=== PATIENT | female | born 1955 | race Caucasian/White ===

== ENCOUNTER 2018-01-31 14:28 | Inpatient (IN) | payer MEDICARE, OTHER ==
[~2018-01-31] VITALS: Ht 162.6 cm; Wt 87.5 kg
--- NOTE | 2018-01-31 14:57 | NUR ---
PT BIB PA WITH A C/O RU CHEST VILMA CATH CLOGGED. LAST HD SATURDAY. UNABLE TO GET HD TODAY. PT HAS A J TUBE THAT SHE WOULD LIKE REMOVED. PT AMBULATES, BUT USES A WALKER LATELY. PT IS AA&O X4. PT IS ON THE MONITOR AND CONTINOUS PULSE OX.
--- NOTE | 2018-01-31 15:08 | NUR ---
IV STARTED IN LEFT WRIST. BLOOD DRAW IN PROGRESS BY PHLIBOTOMIST. EKG IN PROGRESS AT THE BEDSIDE.
--- NOTE | 2018-01-31 15:20 | NUR ---
HD NURSE WAS AT THE BEDSIDE EVALUATING THE VILMA CATH.
[2018-01-31 15:23] LABS: BASOPHILS % (AUTO) 0.5 % (0.0-2.0); HEMATOCRIT 29 % (33-45); HEMOGLOBIN 9.8 g/dL (11.5-14.8); LYMPHOCYTES % (AUTO) 21.9 % (20.0-44.0); MEAN CORPUSCULAR HGB CONC 34 g/dl (31.0-36.0); MEAN CORPUSCULAR VOLUME 104 fL (82-100); MONOCYTES # (AUTO) 0.7 /CMM (0.1-1.30); MONOCYTES % (AUTO) 7.3 % (2.0-12.0); NEUTROPHILS # (AUTO) 5.9 /CMM (1.8-8.9); NEUTROPHILS % (AUTO) 64.3 % (43.0-81.0); PLATELET COUNT (AUTO) 465 /CMM (150-450); RED BLOOD CELL COUNT(AUTO) 2.78 MIL/uL (4.0-5.2); WHITE BLOOD COUNT (AUTO) 9.1 K/uL (4.3-11.0)
[2018-01-31 15:30] LABS: CALCIUM, SERUM 7.8 mg/dL (8.5-10.1); CREATININE 5.3 mg/dL (0.6-1.3); POTASSIUM 3.7 mmol/L (3.5-5.1)
--- NOTE | 2018-01-31 15:33 | NUR ---
CALLED NURSING SUP. FOR TELE BED
[2018-01-31 15:34] LABS: INR 1.03 (0.85-1.15)
[2018-01-31] MEDS ORDERED: GUAI5SYR GT (15:45)
[2018-01-31] MEDS ORDERED: CHLO473M3 MM (15:45)
[2018-01-31] MEDS ORDERED: OXYC5TAB3 GT (15:45)
[2018-01-31] MEDS ORDERED: FLUT16SP BNOSTRILS (15:45)
[2018-01-31] MEDS ORDERED: ASPI-1169 GT (15:45)
[2018-01-31] MEDS ORDERED: SENN-18 GT (15:45)
[2018-01-31] MEDS ORDERED: ATOR40TA GT (15:45)
[2018-01-31] MEDS ORDERED: ALBU2.5V38 IH ×2 (15:45)
[2018-01-31] MEDS ORDERED: QUET25TA GT (15:45)
[2018-01-31] MEDS ORDERED: ACET-868 GT ×2 (15:45)
[2018-01-31] MEDS ORDERED: LISI10TA5 GT (15:45)
[2018-01-31] MEDS ORDERED: BUME1TAB5 GT (15:45)
[2018-01-31] MEDS ORDERED: APIX2.5T GT (15:45)
[2018-01-31] MEDS ORDERED: ONDA4TAB5 GT (15:45)
[2018-01-31] MEDS ORDERED: ESCI10TA GT (15:45)
[2018-01-31] MEDS ORDERED: LORA2TAB GT (15:45)
[2018-01-31] MEDS ORDERED: CARV25TA2 GT (15:45)
[2018-01-31] MEDS ORDERED: FOLI0.8T23 GT (15:45)
[2018-01-31] MEDS ORDERED: INSU100V11 SQ (15:45)
[2018-01-31] MEDS ORDERED: HYDR500C2 GT (15:45)
[2018-01-31] MEDS ORDERED: INSU100V7 SQ (15:45)
[2018-01-31] MEDS ORDERED: AMIN30LI4 GT (15:45)
--- NOTE | 2018-01-31 15:48 | NUR ---
CALLED TO GIVE REPORT TO TELE NURSE. NURSE WILL CALL BACK.
--- NOTE | 2018-01-31 16:03 | NUR ---
CALLING REPORT TO KAUR PHILLIP. KENJI IS NOT AVAILABLE AT THIS TIME. WILL CALL BACK SOON.
[2018-01-31 17:00] VITALS: BP 142/64
--- NOTE | 2018-01-31 17:00 | NUR ---
CONSULTING NURSE NOTES ADMITTED PATIENT FOR ER IN STABLE CONDITION. REPORT GIVEN BY PARABernard. NO ACUTE DISTRESS NOTED. HD CATHETER ON RCW IN INTACT SECURE WITH DRESSING, NO BLEEDING, NO REDNESS OR SWELLING NOTED. GTUBE INTACT , NO REDNESS, NO SWELLING NOTED. ORIENTED TO THE ROOM. SAFETY MEASURE IN PLACE. CALL LIGHT WITHIN REACH. WILL CONTINUE TO MONITOR ACCORDINGLY.
--- NOTE | 2018-01-31 18:49 | NUR ---
PAPER AND PULP MILL OPERATOR NOTES PATIENT IN BED ALERT ORIENTED X4. NO ACUTE DISTRESS NOTED. HD CATHETER ON RCW IN INTACT SECURE WITH DRESSING, NO BLEEDING, NO REDNESS OR SWELLING NOTED. GTUBE INTACT , NO REDNESS, NO SWELLING NOTED. NEEDS ATTENDED AND ANTICIPATED. SAFETY MEASURE IN PLACE. CALL LIGHT WITHIN REACH. WILL CONTINUE TO MONITOR ACCORDINGLY. WILL ENDORSE TO NIGHT NURSE FOR CONTINUITY OF CARE.
--- NOTE | 2018-01-31 19:40 | NUR ---
BANNER PAINTER OPENING NOTES RECEIVED PATIENT IN BED ALERT ORIENTED X 4. NO ACUTE DISTRESS NOTED. NO C/O PAIN, NO SOB NOTED. HD CATHETER ON RCW, INTACT SECURED WITH CLEAN DRESSING, NO S/S OF INFECTION NOTED. IV ACCESS TO LEFT WRIST, INTACT PATENT, SL. G TUBE INTACT, PER PT GT NEVER USED FOR FEEDING OR MEDS, ALSO CONFIRMED WITH [facility] STAFF WELL. PER SNF NURSE, PT HAD BEEN TOLERATING REGULAR DIET VERY WELL. PT REFUSED TO HAVE MILIEU TECHNICIAN ON DESPITE OF EXPLAINING RISKS & BENEFITS, SAYING, " I DON'T NEED IT, I AM FINE." SAFETY MEASURE IN PLACE. BED IN LOW LOCKED POSITION. CALL LIGHT WITHIN REACH. WILL CONTINUE TO MONITOR ACCORDINGLY.
--- NOTE | 2018-01-31 19:45 | NUR ---
DR JONES CALLED MD CALLED TO CONFIRM THAT PT WILL HAVE PERMA CATH INSERTED IN AM, TIME NOT SPECIFIED YET WITH OTHER NEW ORDERS. NOTED & CARRIED OUT. WILL F/U ABOUT THE PROCEDURE TIME.
--- NOTE | 2018-01-31 19:55 | NUR ---
LIVE IN HOUSEKEEPER NOTE PER PM SHIFT NURSE PT HAS BEEN ADMITTED TO THE FLOOR SINCE 0, DR MCKEON IS AWARE & WAITING FOR MD TO PLACE ADMITTING ORDERS FOR THIS PT.
[2018-01-31 20:00] VITALS: BP 146/71
--- NOTE | 2018-01-31 21:50 | NUR ---
DR. EDGAR HUGHES CALLED FOLLOWED WITH NEPHROLOGY DEPT TO RECEIVE ADMITTING ORDERS FOR THE PT, DR EDGAR HUGHES CALLED BACK & ORDERED TO RESUME ALL PREVIOUS MEDS, DC DIABETIC MEDS & PREVIOUS SLIDING SCALE, ADD MILD SLIDING SCALE, NPO AFTER MIDNIGHT, PT IS SCHEDULED FOR PERMA CATH INSERTION IN AM, PER DR. JONES. CONSENTS OBTAINED. START IFV @ MIDNIGHT WHEN PT IS NPO, CBC, BMP IN AM. ALL ORDERS NOTED & CARRIED OUT. WILL CONTINUE TO MONITOR THE PT CLOSELY FOR ANY OLIVIER.
[2018-01-31] MEDS ORDERED: ACETAMINOPHEN 325 MG TABLET PO PRN (22:30)
[2018-01-31] MEDS ORDERED: ALBUTEROL FS 2.5 MG/3 ML VIAL.NEB NEB PRN (22:30)
[2018-01-31] MEDS: ALBUTEROL FS 2.5 MG/3 ML VIAL.NEB NEB SCH (22:30)
[2018-01-31] MEDS ORDERED: DEXTROSE 50%-WATER 50 ML DISP.SYRIN IV PRN (22:30)
[2018-01-31] MEDS: BLOOD SUGAR DIAGNOSTIC 1 EACH STRIP IN SCH (22:37)
[2018-01-31] MEDS ORDERED: GUAIFENESIN/D-METHORPHAN HB 5 ML UDC PO PRN (23:00)
[2018-01-31] MEDS ORDERED: oxyCODONE HCL SR 10MG TAB.SR.12H PO SCH (23:00)
--- NOTE | 2018-01-31 23:11 | NUR ---
RN OPERATING ROOM NOTE PT'S BS LEVEL NOTED TO BE 95 MG/DL, GAVE SNACK TO THE PT TO PREVENT HYPOGLYCEMIA, PT HAD 100 % OF SNACK & FELL BACK ASLEEP. BUT STILL REFUSED TO HAVE THE POTATO CHIP PROCESSING SUPERVISOR ON WHEN EXPLAINED.
[2018-02-01] VITALS: BP 140/82
[2018-02-01] MEDS ORDERED: IV D5/ 0.9% NACL 1,000 ML IV PRN
--- NOTE | 2018-02-01 00:55 | NUR ---
NEW IV LINE INSERTED PT WAS STARTED ON IVF, NOTED WITH IV SITE LEAKAGE, REMOVED IV ACCESS TO LEFT WRIST, PRESSURE DRESSING APPLIED. NEW IV CATH INSERTED TO LEFT FOREARM WITH GOOD BLOOD RETURN, NO S/S OF INFECTION NOTED. PROCEDURE TOLERATED WELL BY THE PT. IVF RUNNING ORDERED BY . PT IS NPO SINCE MIDNIGHT. WII OBSERVE CLOSELY.
[2018-02-01] MEDS: ALBUTEROL FS 2.5 MG/3 ML VIAL.NEB NEB SCH ×4 (01:30→19:08)
[2018-02-01 04:00] VITALS: BP 139/75
[2018-02-01 06:45] LABS: BASOPHILS % (AUTO) 0.2 % (0.0-2.0); EOSINOPHILS % (AUTO) 5.9 % (0.0-6.0); HEMATOCRIT 28 % (33-45); HEMOGLOBIN 9.1 g/dL (11.5-14.8); LYMPHOCYTES # (AUTO) 1.8 /CMM (0.8-4.8); LYMPHOCYTES % (AUTO) 20.7 % (20.0-44.0); MEAN CORPUSCULAR HGB CONC 33 g/dl (31.0-36.0); MEAN CORPUSCULAR VOLUME 105 fL (82-100); MONOCYTES # (AUTO) 0.8 /CMM (0.1-1.30); MONOCYTES % (AUTO) 9.3 % (2.0-12.0); NEUTROPHILS # (AUTO) 5.7 /CMM (1.8-8.9); NEUTROPHILS % (AUTO) 63.9 % (43.0-81.0); PLATELET COUNT (AUTO) 455 /CMM (150-450); RDW COEFFICIENT OF VARIATION 28.6 (11.5-15.0); RED BLOOD CELL COUNT(AUTO) 2.62 MIL/uL (4.0-5.2); WHITE BLOOD COUNT (AUTO) 8.9 K/uL (4.3-11.0)
[2018-02-01] MEDS: BLOOD SUGAR DIAGNOSTIC 1 EACH STRIP IN SCH ×4 (06:52→21:52)
[2018-02-01] MEDS ORDERED: LIDOCAINE 1% INJ 50 ML MDV IJ ONE (07:02)
[2018-02-01] MEDS ORDERED: IOHEXOL 50 ML IV ONE (07:02)
[2018-02-01] MEDS ORDERED: HEPARIN SODIUM, PORCINE 1,000 UNIT/ML VIAL ONE (07:02)
[2018-02-01 07:03] LABS: CALCIUM, SERUM 8.1 mg/dL (8.5-10.1); CREATININE 5.3 mg/dL (0.6-1.3); POTASSIUM 3.7 mmol/L (3.5-5.1)
[2018-02-01] MEDS ORDERED: ANESTHESIA TRAY IN PYXIS 1 EA TRAY MC ONE (07:03)
--- NOTE | 2018-02-01 07:10 | NUR ---
DEFENCE FORCE MEMBER OTHER RANKS CLOSING NOTES PT SLEPT WELL @ NIGHT. A & O X 4. NO ACUTE DISTRESS NOTED. NO C/O PAIN, NO SOB NOTED. HD CATHETER ON RCW, INTACT SECURED WITH CLEAN DRESSING, NO S/S OF INFECTION NOTED. IV ACCESS TO LFA, INTACT PATENT, RUNNING WITH IVF ORDERED. G TUBE INTACT, DRESSING CHANGED. PT IS NPO AFTER MIDNIGHT FOR SCHEDULED PERMA CATH INSERTION, PER DR JONES @ 0730. PT CONTINUED REFUSING TO HAVE SENIOR ENVIRONMENTAL CONSULTANT ON DESPITE OF EXPLAINING RISKS & BENEFITS, SAYING, " I DON'T NEED IT, I AM FINE & I DON'T WANT ALL THAT STUFF ALL OVER ME." SAFETY MEASURE IN PLACE. BED IN LOW LOCKED POSITION. CALL LIGHT WITHIN REACH. ENDORSED TO AM RN FOR CONTINUITY OF CARE.
--- NOTE | 2018-02-01 07:15 | NUR ---
RN OPENING NOTES PT. IS A&OX4. PT. BREATHING ON ROOM AIR UNLABORED. PT. LEFT ROOM TO GO TO OR FOR A PROCEDURE TO REPLACE PERMACATHETER. CHECKLIST WAS COMPLETED, AND CONSENT WAS SIGNED.
[2018-02-01 08:00] VITALS: BP 139/71
--- NOTE | 2018-02-01 08:36 | NUR ---
PT. RETURNED BACK TO ROOM 316 BED 2 FROM SURGERY. PT. IS IN STABLE CONDITION, A&OX3.
[2018-02-01] MEDS: APIXABAN 2.5 MG TABLET PO SCH ×2 (09:00→17:11)
[2018-02-01] MEDS: QUETIAPINE FUMARATE 25 MG TABLET PO SCH ×2 (09:00→19:03)
--- NOTE | 2018-02-01 09:40 | NUR ---
DISCONTINUE TELEMETRY MONITORING PER DR. PITTMAN. CHARGE NURSE AWARE.
[2018-02-01] MEDS ORDERED: HYDROCODONE/APAP 5/325MG 1 EACH TABLET PO PRN (10:00)
[2018-02-01] MEDS: FLUTICASONE PROPIONATE 16 GM BOTTLE NS SCH (10:22)
[2018-02-01] MEDS: PROSOURCE / PROSTAT (PYXIS) 30 ML UDC PO SCH ×2 (12:53→17:11)
--- NOTE | 2018-02-01 13:02 | NUR ---
HEMODIALYSIS 02/01/18 P1 LITER WAS REMOVED, BP 149/85, PULSE 80 PULSE.
[2018-02-01] MEDS: VIT B CMPLX 3/FA/VIT C/BIOTIN 1 TAB TABLET PO SCH (13:04)
[2018-02-01] MEDS: ASPIRIN EC 81 MG TABLET.DR PO SCH (13:04)
[2018-02-01] MEDS: SENNOSIDES 8.6 MG TABLET PO SCH ×2 (13:04→17:12)
[2018-02-01] MEDS: HYDROXYUREA 500 MG CAPSULE PO SCH ×2 (13:07→19:02)
[2018-02-01] MEDS: LISINOPRIL (10MG) 10 MG TABLET PO SCH (13:07)
[2018-02-01] MEDS: CARVEDILOL 12.5 MG TABLET PO SCH ×2 (13:08→21:52)
[2018-02-01] MEDS: BUMETANIDE (1 MG) 1 MG TABLET PO SCH ×2 (13:08→19:02)
[2018-02-01 14:12] LABS: IRON, SERUM 51 ug/dl (50-175); TOTAL IRON BINDING CAPACITY 165 ug/dl (250-450)
--- NOTE | 2018-02-01 14:45 | NUR ---
RN NOTES PT. HAS AN UNSTEADY GAIT, AND AMBULATED WITH A WALKER WITH STAND BY ASSIST IN THE HALLWAY FOR 5 MINUTES.
[2018-02-01] MEDS: PANTOPRAZOLE 40 MG VIAL IV SCH (14:49)
[2018-02-01 16:00] VITALS: BP 129/78
--- NOTE | 2018-02-01 16:36 | NUR ---
RN NOTES PT. REFUSED TO WEAR DVT PUMPS. PT. WAS EXPLAINED THE BENEFITS, AND DID NOT WANT TO WEAR THEM.
--- NOTE | 2018-02-01 19:25 | NUR ---
MS RN OPENING NOTES RECEIVED PT SITTING UPRIGHT IN BED. AWAKE AND RESPONSIVE. AFEBRILE, RESPIRATIONS ARE EVEN AND UNLABORED. NOT IN ANY ACUTE DISTRESS NOTED. PT DENIES ANY PAIN OR DISCOMFORT, N/V, SOB. IV SITE INTACT, NO INFILTRATION NOTED. DRESSING KEPT CLEAN AND DRY. HD TO RCW, NO S/SX OF INFECTION NOTED. SAFETY MEASURES ARE IN PLACE. CALL LIGHT IS LEFT WITHIN REACH. WILL CONTINUE TO MONITOR THROUGHOUT SHIFT FOR CONTINUITY OF CARE.
--- NOTE | 2018-02-01 19:38 | NUR ---
RN CLOSING NOTES PT. IN BED A&OX4. BREATHING IS UNLABORED, AND EVEN ON ROOM AIR. NO S/S OF ACUTE DISTRESS. IV ACCES ON RIGHT FOREARM IS INTACT. PT. RECEIVED HEMODIALYSIS TODAY, AND HAD A NEW PERMA CATHETER FOR HD REPLACED IN THE MORNING. WALKER IS AT BEDSIDE. BED IS IN LOWEST, AND LOCKED POSITION. 2 SIDE RAILS UP, AND CALL LIGHT WITHIN REACH. WILL ENDORSE REPORT TO NURSE.
[2018-02-01 20:00] VITALS: BP 149/81
[2018-02-01] MEDS: ATORVASTATIN 40 MG TABLET PO SCH (21:51)
[2018-02-01] MEDS: ESCITALOPRAM OXALATE (10 MG) 10 MG TABLET PO SCH (21:51)
[2018-02-02] MEDS: LORAZEPAM 1 MG TABLET PO PRN ×2 (00:35→23:25)
[2018-02-02] MEDS: ALBUTEROL FS 2.5 MG/3 ML VIAL.NEB NEB SCH ×4 (01:30→19:30)
--- NOTE | 2018-02-02 06:37 | NUR ---
MS RN CLOSING NOTES ALL DUE MEDS GIVEN, NEEDS MET AND RENDERED. AWAKE AND RESPONSIVE. AFEBRILE, RESPIRATIONS ARE EVEN AND UNLABORED, NOT IN ANY ACUTE DISTRESS NOTED. DENIES ANY SOB, CHEST PAIN, N/V. IV SITE INTACT, DRESSING KEPT CLEAN AND DRY. SAFETY MEASURES ARE IN PLACE. WILL ENDORSE TO NEXT SHIFT FOR CONTINUITY OF CARE.
[2018-02-02] MEDS: BLOOD SUGAR DIAGNOSTIC 1 EACH STRIP IN SCH ×4 (06:50→21:51)
--- NOTE | 2018-02-02 07:29 | NUR ---
RN OPENING NOTES RECEIVED PT. IN BED SLEEPING. BREATHING IS UNLABORED, AND EVEN ON ROOM AIR. NO S/S OF ACUTE DISTRESS. IV ACCES ON RIGHT FOREARM IS INTACT. WALKER IS AT BEDSIDE. BED IS IN LOWEST, AND LOCKED POSITION. 2 SIDE RAILS UP, AND CALL LIGHT WITHIN REACH. WILL CONTINUE TO ASSESS AND MONITOR.
[2018-02-02 08:00] VITALS: BP 125/69
--- NOTE | 2018-02-02 08:43 | NUR ---
RN NOTES PT. REFUSED PHYSICAL THERAPY THIS MORNING.
[2018-02-02] MEDS: FLUTICASONE PROPIONATE 16 GM BOTTLE NS SCH (08:54)
[2018-02-02] MEDS: VIT B CMPLX 3/FA/VIT C/BIOTIN 1 TAB TABLET PO SCH (08:55)
[2018-02-02] MEDS: HYDROXYUREA 500 MG CAPSULE PO SCH ×2 (08:55→17:02)
[2018-02-02] MEDS: BUMETANIDE (1 MG) 1 MG TABLET PO SCH ×2 (08:55→17:02)
[2018-02-02] MEDS: QUETIAPINE FUMARATE 25 MG TABLET PO SCH ×2 (08:55→17:02)
[2018-02-02] MEDS: SENNOSIDES 8.6 MG TABLET PO SCH ×2 (08:55→17:02)
[2018-02-02] MEDS: ASPIRIN EC 81 MG TABLET.DR PO SCH (08:55)
[2018-02-02] MEDS: CARVEDILOL 12.5 MG TABLET PO SCH ×2 (08:57→21:18)
[2018-02-02] MEDS: LISINOPRIL (10MG) 10 MG TABLET PO SCH (08:57)
[2018-02-02] MEDS: APIXABAN 2.5 MG TABLET PO SCH ×2 (08:59→17:00)
[2018-02-02] MEDS: PROSOURCE / PROSTAT (PYXIS) 30 ML UDC PO SCH ×2 (08:59→17:02)
--- NOTE | 2018-02-02 12:00 | NUR ---
HD PERMA CATHETER DRESSING WAS CHANGED BY DIALYSIS NURSE WITHOUT COMPLICATIONS.
[2018-02-02] MEDS: INSULIN REGULAR, HUMAN 100 UNIT/ML 3 ML VIAL SQ PRN ×2 (12:12→21:54)
--- NOTE | 2018-02-02 13:46 | NUR ---
CONSENTS SIGNED FOR G-TUBE REMOVAL, AND EGD FOR Saturday02/03/18. PER PRINCIPAL PLANNER ORDER, HOLD IRON VILLAFUERTE PT. WILL BE NPO AFTER MIDNIGHT.
[2018-02-02] MEDS: PANTOPRAZOLE 40 MG VIAL IV SCH (14:10)
[2018-02-02 16:00] VITALS: BP 121/70
--- NOTE | 2018-02-02 18:53 | NUR ---
RN CLOSING NOTES PT. IS IN BED A&OX4. NO SOB, BREATHING IS UNLABORED, AND EVEN ON ROOM AIR. NO S/S OF ACUTE DISTRESS. IV ACCES ON LEFT FOREARM IS INTACT AND PATENT. WALKER IS AT BEDSIDE. BED IS IN LOWEST, AND LOCKED POSITION. 2 SIDE RAILS UP, AND INSTRUCTED PT. TO USE CALL LIGHT FOR ASSISTANCE. WILL ENDORSE REPORT TO NURSE.
--- NOTE | 2018-02-02 19:30 | NUR ---
MS RN OPENING NOTES: PATIENT IN BED, AOX4, ON ROOM AIR, BREATHING EVEN AND UNLABORED. BREATH SOUNDS CLEAR TO AUSCULTATION. APPEARS CALM AND IN NO DISTRESS, DENIES PAIN OR DIFFICULTY BREATHING. PIV OVER LFA G 22 INTACT AND PATENT TO FLUSH. PATIENT HAS GTUBE IN PLACE, CLAMPED. PER PATIENT, SHE HAS NOT BEEN USING IT FOR WEEKS. PATIENT WILL BE HAVING GTUBE REMOVAL TOMORROW WITH GI, DR LONDONO, PATIENT IS AWARE, CONSENTED. PATIENT WILL ALSO HAVE EGD FOR TOMORROW, ADVISED PATIENT THAT SHE WILL BE NPO POST MIDNIGHT. PATIENT HAS SOME QUESTIONS RE ANESTHESIA, STATES THAT SHE WANTS TO BE "KNOCKED OUT" DURING THE PROCEDURE OR ELSE SHE WILL NOT CONSENT. WILL INFORM GI TONIGHT. PROVIDED FOR COMFORT AND SAFETY. BED IN LOWEST AND LOCKED POSITION, SIDERAILS UP X 3, CALL LIGHT WITHIN REACH. WILL CONT TO MONITOR.
[2018-02-02 19:51] VITALS: BP 149/71
[2018-02-02 20:00] VITALS: BP 149/71
[2018-02-02] MEDS: ATORVASTATIN 40 MG TABLET PO SCH (21:18)
[2018-02-02] MEDS: ESCITALOPRAM OXALATE (10 MG) 10 MG TABLET PO SCH (21:18)
--- NOTE | 2018-02-02 21:56 | NUR ---
RN NOTES: BLOOD SUGAR CHECKED AT 141 MG/DL, THEN PATIENT REQUESTED FOR HER BLOOD SUGAR TO ALSO BE CHECKED OVER HER R FINGER, CHECKED AT 147 MG/DL. ADMINISTERED 2 UNITS REGULAR INSULIN PER SCALE. GAVE LIGHT SNACK. WILL CONT TO MONITOR.
[2018-02-02 23:30] VITALS: BP 113/60
[2018-02-03] MEDS ORDERED: IV D5/0.45 NACL 1,000 ML IV PRN
[2018-02-03] MEDS: ALBUTEROL FS 2.5 MG/3 ML VIAL.NEB NEB SCH ×4 (01:30→19:30)
--- NOTE | 2018-02-03 04:49 | NUR ---
RN NOTES: MORNING CARE RENDERED. HOWEVER, PATIENT REFUSED TO HAVE DRESSING OVER GTUBE REMOVED AND REPLACED.
[2018-02-03] MEDS ORDERED: Z GUARD REMEDY 2 OZ OINT TP PRN (05:00)
[2018-02-03] MEDS: BLOOD SUGAR DIAGNOSTIC 1 EACH STRIP IN SCH ×4 (05:56→21:39)
[2018-02-03] MEDS: INSULIN REGULAR, HUMAN 100 UNIT/ML 3 ML VIAL SQ PRN ×3 (05:56→17:25)
--- NOTE | 2018-02-03 05:57 | NUR ---
BS 108: BLOOD SUGAR 108, NO INSULIN COVERAGE GIVEN PER SLIDING SCALE
--- NOTE | 2018-02-03 07:00 | NUR ---
MS RN INITIAL NOTES: patient is for scheduled EGD, tool repair technician came to pick pack worker the patient via serwisam going to surgery.
--- NOTE | 2018-02-03 07:00 | NUR ---
MS RN CLOSING NOTES: PATIENT IN BED, AOX4, ON ROOM AIR, BREATHING EVEN AND UNLABORED. APPEARS CALM AND IN NO DISTRESS. MAINTAINED ON NPO POST MIDNIGHT FOR EGD AND GT REMOVAL IN AM. PIV OVER LFA G 22 INTACT AND INFUSING WELL WITH IV FLUID OF D5 1/2 NS RUNNING AT 30 ML/HR. AM BLOOD SUGAR CHECKED AT 108 MG/DL. DUE MEDS GIVEN. PROVIDED FOR COMFORT AND SAFETY. BED IN LOWEST AND LOCKED POSITION, SIDERAILS UP X 3, CALL LIGHT WITHIN REACH, WILL ENDORSE TO AM RN FOR OLIVIER.
--- NOTE | 2018-02-03 07:05 | NUR ---
RN NOTES: PATIENT WAS BROUGHT TO OR VIA GURNEY, VS CHECKED, STABLE.
[2018-02-03 07:14] LABS: BASOPHILS # (AUTO) 0.1 /CMM (0.0-0.2); BASOPHILS % (AUTO) 0.5 % (0.0-2.0); HEMATOCRIT 26 % (33-45); HEMOGLOBIN 8.7 g/dL (11.5-14.8); LYMPHOCYTES % (AUTO) 18.2 % (20.0-44.0); MEAN CORPUSCULAR HGB CONC 33 g/dl (31.0-36.0); MEAN CORPUSCULAR VOLUME 105 fL (82-100); MONOCYTES # (AUTO) 0.7 /CMM (0.1-1.30); MONOCYTES % (AUTO) 6.6 % (2.0-12.0); NEUTROPHILS # (AUTO) 7.7 /CMM (1.8-8.9); NEUTROPHILS % (AUTO) 69.7 % (43.0-81.0); PLATELET COUNT (AUTO) 479 /CMM (150-450); RDW COEFFICIENT OF VARIATION 27.5 (11.5-15.0)
[2018-02-03 07:28] LABS: CALCIUM, SERUM 8.3 mg/dL (8.5-10.1); CREATININE 5.5 mg/dL (0.6-1.3); MAGNESIUM 1.6 mg/dL (1.8-2.4); PHOSPHORUS 5.9 mg/dL (2.5-4.9); POTASSIUM 3.9 mmol/L (3.5-5.1)
[2018-02-03 08:00] VITALS: BP 153/84
[2018-02-03 09:00] VITALS: BP 153/84
[2018-02-03] MEDS: VIT B CMPLX 3/FA/VIT C/BIOTIN 1 TAB TABLET PO SCH (09:00)
[2018-02-03] MEDS: APIXABAN 2.5 MG TABLET PO SCH ×2 (09:00→16:15)
[2018-02-03] MEDS: ASPIRIN EC 81 MG TABLET.DR PO SCH (09:00)
[2018-02-03] MEDS: HYDROXYUREA 500 MG CAPSULE PO SCH ×2 (09:00→16:15)
[2018-02-03] MEDS: CARVEDILOL 12.5 MG TABLET PO SCH ×2 (09:00→21:29)
[2018-02-03] MEDS: SENNOSIDES 8.6 MG TABLET PO SCH ×2 (09:00→16:15)
[2018-02-03] MEDS: QUETIAPINE FUMARATE 25 MG TABLET PO SCH ×2 (09:00→16:15)
[2018-02-03] MEDS: PROSOURCE / PROSTAT (PYXIS) 30 ML UDC PO SCH ×2 (09:00→16:16)
[2018-02-03] MEDS: LISINOPRIL (10MG) 10 MG TABLET PO SCH (09:00)
[2018-02-03] MEDS: BUMETANIDE (1 MG) 1 MG TABLET PO SCH ×2 (09:00→16:15)
--- NOTE | 2018-02-03 09:00 | NUR ---
ms rn notes Patient came back from surgery s/p EGD and GT removal, in stable condition, no complaint of pain or discomfort, verbally responsive. IV intact and patent with IVF from surgery infusing well. Per OR nurse to keep patient NPO for 12 more hours and resume diet after. Vital signs checked and recorded, call light with in patient reach, will continue to monitor. Held all PO medications due to patient is still NPO.
[2018-02-03] MEDS: FLUTICASONE PROPIONATE 16 GM BOTTLE NS SCH (09:25)
--- NOTE | 2018-02-03 11:44 | NUR ---
MS RN NOTES: BSL CHECKED; 101. NO COVERAGE NEEDED
[2018-02-03] MEDS: PANTOPRAZOLE 40 MG VIAL IV SCH (14:34)
[2018-02-03 16:00] VITALS: BP 140/74
--- NOTE | 2018-02-03 17:26 | NUR ---
ms rn notes Blood sugar checked 105 no coverage given. Will continue to monitor.
--- NOTE | 2018-02-03 19:14 | NUR ---
ms rn closing notes All needs provided, attended, and anticipated. Endorsed patient in stable condition to continue care. call light with in patient reach.
--- NOTE | 2018-02-03 19:50 | NUR ---
MS RN OPENING NOTE Patient was seen sitting upright in bed AAOx4, breathing on RA with no SOB, and no signs of acute distress. PermaCath noted in right chest wall. SL 22g IV is in left FA. Bed is in low/locked position, two side rails up, and call vera within reach. Patient has no immediate needs or concerns at this time. Will continue to monitor.
[2018-02-03 20:07] VITALS: BP 132/71
[2018-02-03] MEDS: ESCITALOPRAM OXALATE (10 MG) 10 MG TABLET PO SCH (21:29)
[2018-02-03] MEDS: LORAZEPAM 1 MG TABLET PO PRN (21:29)
[2018-02-03] MEDS: ATORVASTATIN 40 MG TABLET PO SCH (21:29)
--- NOTE | 2018-02-03 21:30 | NUR ---
MS RN NOTE - Ativan Patient requested Ativan for sleep. Administered PO Ativan 2mg as ordered prn q4h.
[2018-02-04] MEDS: ALBUTEROL FS 2.5 MG/3 ML VIAL.NEB NEB SCH ×3 (01:30→13:30)
[2018-02-04] MEDS: BLOOD SUGAR DIAGNOSTIC 1 EACH STRIP IN SCH ×3 (06:51→16:58)
--- NOTE | 2018-02-04 07:15 | NUR ---
MS RN INITIAL NOTES: Received patient in bed, asleep with head of bed elevated. patient easily woken. awake/ oriented x 4. IV on left forearm intact and patent. patient able to make needs known. no complaints of discomfort as of the moment. call light within reach. bed in low position. patient in stable condition as endorsed by cnc machinist 2nd shift RN.
--- NOTE | 2018-02-04 07:21 | NUR ---
MS RN CLOSING NOTE Patient was seen sleeping, but awoke easily by name; is AAOx4, breathing on RA with no SOB, and no signs of acute distress. Patient slept well overnight with no complaints. HD cath in RCW is intact with transparent dressing. SL 22g IV is in the left FA. Bed is in the low/locked position, two side rails up, call vera within reach. Patient care has been endorsed to day shift nurse.
[2018-02-04 08:00] VITALS: BP 109/61
[2018-02-04] MEDS: HYDROXYUREA 500 MG CAPSULE PO SCH ×2 (08:40→16:08)
[2018-02-04] MEDS: VIT B CMPLX 3/FA/VIT C/BIOTIN 1 TAB TABLET PO SCH (08:41)
[2018-02-04] MEDS: SENNOSIDES 8.6 MG TABLET PO SCH ×2 (08:41→16:08)
[2018-02-04] MEDS: BUMETANIDE (1 MG) 1 MG TABLET PO SCH ×2 (08:41→16:08)
[2018-02-04] MEDS: ASPIRIN EC 81 MG TABLET.DR PO SCH (08:41)
[2018-02-04] MEDS: PANTOPRAZOLE 40 MG VIAL IV SCH (08:42)
[2018-02-04] MEDS: CARVEDILOL 12.5 MG TABLET PO SCH (08:42)
[2018-02-04] MEDS: PROSOURCE / PROSTAT (PYXIS) 30 ML UDC PO SCH ×2 (08:43→16:11)
[2018-02-04] MEDS: LISINOPRIL (10MG) 10 MG TABLET PO SCH (08:43)
[2018-02-04] MEDS: QUETIAPINE FUMARATE 25 MG TABLET PO SCH ×2 (08:43→16:08)
[2018-02-04] MEDS: FLUTICASONE PROPIONATE 16 GM BOTTLE NS SCH (08:44)
[2018-02-04] MEDS: APIXABAN 2.5 MG TABLET PO SCH ×2 (08:58→16:12)
--- NOTE | 2018-02-04 11:06 | NUR ---
WOUND CARE CONSULT WOUND CARE RECEIVED CONSULT FOR BUTTOCKS, GROIN AND HEEL REDNESS. WOUND CARE WILL DEFER CONSULT AND ALL TREATMENT PLANS TO SURGICAL TEAM WHO ARE CURRENTLY FOLLOWING. PATIENT WITH LAMIN AT 20 AT THIS TIME.
[2018-02-04] MEDS: INSULIN REGULAR, HUMAN 100 UNIT/ML 3 ML VIAL SQ PRN ×2 (11:44→17:01)
[2018-02-04 16:00] VITALS: BP 110/67
--- NOTE | 2018-02-04 18:30 | NUR ---
ms discharge notes discharge instructions given to patient and able to understand instructions. Signed discharge paper and belonging list and no items missing. IV HL removed and no bleeding noted. No complaint of pain or discomfort noted. Skin pictures taken and filed in the chart. Pneumonia and flu vaccine not given due to not season for flu and PNA <65 years old. Patient left the hospital in stable condition accompanied by 2 EMT's. Report given to Todd from [facility] and made aware. MD and charge nurse aware.
== END 2018-02-04 18:37 | DRG 314 ==
LOC: ER 14:30 → TELE 15:55 → MED 02-01 11:28
PROVIDERS: ADMIT Internal Medicine Nephrology; ATTEND Internal Medicine Nephrology
PROC: 05HM33Z Insertion of Infusion Device into Right Internal Jugular Vein, Percutaneous Approach (ICD-10-PCS; 2018-01-31)
PROC: B513ZZA Fluoroscopy of Right Jugular Veins, Guidance (ICD-10-PCS; 2018-01-31)
PROC: 5A1D70Z Performance of Urinary Filtration, Intermittent, Less than 6 Hours Per Day (ICD-10-PCS; principal; 2018-02-01 07:30)
PROC: 5A1D70Z Performance of Urinary Filtration, Intermittent, Less than 6 Hours Per Day (ICD-10-PCS; 2018-02-03)
PROC: 0DB68ZX Excision of Stomach, Via Natural or Artificial Opening Endoscopic, Diagnostic (ICD-10-PCS; 2018-02-03)
PROC: 0DP6XUZ Removal of Feeding Device from Stomach, External Approach (ICD-10-PCS; 2018-02-03)
DX: T82.49XA Other complication of vascular dialysis catheter, initial encounter (principal); N18.6 End stage renal disease; I12.0 Hypertensive chronic kidney disease with stage 5 chronic kidney disease or end stage renal disease; E11.22 Type 2 diabetes mellitus with diabetic chronic kidney disease; Y84.1 Kidney dialysis as the cause of abnormal reaction of the patient, or of later complication, without mention of misadventure at the time of the procedure; D53.9 Nutritional anemia, unspecified; Z99.2 Dependence on renal dialysis; I49.9 Cardiac arrhythmia, unspecified; L98.8 Other specified disorders of the skin and subcutaneous tissue; K29.70 Gastritis, unspecified, without bleeding; K44.9 Diaphragmatic hernia without obstruction or gangrene; Y92.89 Other specified places as the place of occurrence of the external cause
CPT/HCPCS: 36415; 71045-TC; 80048-TC; 82962-TC; 83540-TC; 83735-TC; 84100-TC; 85025-TC; 85730-TC; 86850-TC; 87081-TC; 88305-TC; 88313-TC; 88342; 90935-TC; A4606; A6403; C1750; C9113; J0690; J1644; J1815; J2704; J3490; J7042; Q9967; Z7610